=== PATIENT | female | born 1995 | race Caucasian/White ===

== ENCOUNTER → 2021-06-29 | Outpatient (CLI) | payer OTHER ==
--- NOTE | 2021-06-29 11:30 | Diagnostic Imaging Report ---
Right foot at 1005 hours. INDICATION: Follow-up fracture. 3 views were obtained. There are no prior studies available for comparison. FINDINGS: On the oblique view, there is minimal interruption of the lateral cortex of the base of the 5th metatarsal. This finding is suspicious for a nondisplaced fracture. No other fracture or acute bony abnormality is noted. The Lisfranc joint seems well maintained. The soft tissues are unremarkable. IMPRESSION: 1. The findings do suggest a nondisplaced fracture of the base of the 5th metatarsal. 2. If previous studies are available they would be helpful for comparison. Dictated by: Dictated on workstation # [id number]
== END ==
LOC: RAD FS 09:41
PROVIDERS: ATTEND Nurse Practitioner
DX: S92.354D Nondisplaced fracture of fifth metatarsal bone, right foot, subsequent encounter for fracture with routine healing (principal); X58.XXXD Exposure to other specified factors, subsequent encounter
CPT/HCPCS: 73630